=== PATIENT | female | born 1960 | race Hispanic/Latino ===

== ENCOUNTER 2018-09-12 13:54 | Emergency (ER) | payer OTHER ==
[2018-09-12] MEDS ORDERED: HYDROMORPHONE 1 MG/1 ML AMP ONE (14:27)
== END 2018-09-12 15:18 | disposition home or self-care (01) ==
LOC: EDH 13:54
DX: S52.501A Unspecified fracture of the lower end of right radius, initial encounter for closed fracture (principal); W18.39XA Other fall on same level, initial encounter; Y93.01 Activity, walking, marching and hiking; Y92.89 Other specified places as the place of occurrence of the external cause; Y99.8 Other external cause status
CPT/HCPCS: 29125; 73110; 96372; 99284; J1170